=== PATIENT | female | born 1995 | race Native Hawaiian/Other Pacific Islander ===

== ENCOUNTER 2017-02-15 11:07 | Emergency (ER) | payer OTHER, MEDICAID ==
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
[2017-02-15] MEDS ORDERED: FLEXERIL PO ONE (15:17)
[2017-02-15] MEDS ORDERED: NORCO 5/325 PO ONE (15:17)
[2017-02-15 16:17] VITALS: BP 114/70
== END 2017-02-15 16:07 | disposition home or self-care (01) ==
LOC: ED 11:07
DX: S16.1XXA Strain of muscle, fascia and tendon at neck level, initial encounter (principal); M54.5 Low back pain; V43.52XA Car driver injured in collision with other type car in traffic accident, initial encounter; Y93.89 Activity, other specified; Y99.8 Other external cause status; Y92.488 Other paved roadways as the place of occurrence of the external cause
CPT/HCPCS: 99282

== ENCOUNTER 2021-04-03 13:10 | Emergency (ER) | payer MEDICAID | END 2021-04-03 14:09 | disposition left against medical advice (07) | LOC: ED 13:10 | DX: M54.2 Cervicalgia (principal); Z53.21 Procedure and treatment not carried out due to patient leaving prior to being seen by health care provider ==